=== PATIENT | male | born 1975 | race African-American/Black ===

== ENCOUNTER 2019-02-01 11:06 | Emergency (ER) | payer SELFPAY | END 2019-02-01 12:09 | disposition home or self-care (01) | LOC: ERS 11:06 | DX: M41.9 Scoliosis, unspecified (principal); Z87.891 Personal history of nicotine dependence | CPT/HCPCS: 99283 ==

== ENCOUNTER 2019-02-06 10:31 | Emergency (ER) | payer SELFPAY ==
[2019-02-06] MEDS ORDERED: Ketorolac Tromethamine 60 MG/2 ML VIAL ONE (13:22)
[2019-02-06 13:43] LABS: Bilirubin Negative (Negative); Blood, Urine Negative (Negative); Glucose, Urine (Dipstick) Negative (Negative); Leukocyte Negative (Negative); Nitrite Negative (Negative); Protein, Urine (Dipstick) Negative (Neg-Trace); Urobilinogen 0.2 mg/dL (Less than 2)
[2019-02-06 13:44] LABS: Clarity Clear (Clear)
== END 2019-02-06 14:29 | disposition home or self-care (01) ==
LOC: ERS 10:31
DX: M54.5 Low back pain (principal); F17.210 Nicotine dependence, cigarettes, uncomplicated; M81.0 Age-related osteoporosis without current pathological fracture; Z79.899 Other long term (current) drug therapy
CPT/HCPCS: 81003; 96372; J1885

== ENCOUNTER 2019-02-14 14:47 | Emergency (ER) | payer SELFPAY ==
[2019-02-14] MEDS ORDERED: Naproxen 500 MG TAB ONE (17:10)
== END 2019-02-14 17:12 | disposition home or self-care (01) ==
LOC: ERS 14:47
DX: M54.5 Low back pain (principal); G89.29 Other chronic pain; F17.210 Nicotine dependence, cigarettes, uncomplicated; M81.0 Age-related osteoporosis without current pathological fracture; Z79.899 Other long term (current) drug therapy
CPT/HCPCS: 99283

== ENCOUNTER 2019-02-21 14:45 | Emergency (ER) | payer SELFPAY | END 2019-02-21 16:50 | disposition home or self-care (01) | LOC: ERS 14:45 | DX: G89.29 Other chronic pain (principal); M54.5 Low back pain; F17.210 Nicotine dependence, cigarettes, uncomplicated; Z79.899 Other long term (current) drug therapy | CPT/HCPCS: 99283 ==